=== PATIENT | male | born 1940 | race Caucasian/White ===

== ENCOUNTER 2023-12-12 15:50 | Emergency (ER) | payer MEDICARE, OTHER, SELFPAY ==
[2023-12-12 16:30] LABS: % Basophils 0.3 % (0-2); % Eosinophils 1.9 % (0-6); % Immature Granulocytes 0.7 % (0-0.5); % Lymphocytes 6.3 % (20.5-51.1); % Monocytes 2.5 % (1.7-9.3); % Neutrophils 88.3 % (42.2-75.2); Absolute Eosinophils 0.2 10^3/uL (0-0.7); Absolute Immature Granulocytes 0.1 10^3/uL (0-0.05); Absolute Lymphocytes 0.6 10^3/uL (1.2-3.4); Absolute Monocytes 0.2 10^3/uL (0.1-0.6); Absolute Neutrophils 7.8 10^3/uL (1.4-6.5); Hematocrit 34.4 % (39.0-52.0); Hemoglobin 11.6 g/dL (13.0-18.0); Mean Corp Hgb Conc. 33.7 g/dL (33.0-37.0); Mean Corpuscular Hgb 32.4 pg (27.0-31.0); Mean Corpuscular Volume 96.1 fL (80.0-94.0); Mean Platelet Volume 10.1 fL (7.4-10.4); Nucleated Red Blood Cells % 0 % (-); Platelet Count 162 10^3/uL (130-400); Red Blood Cell Count 3.58 10^6/uL (4.70-6.10); Red Cell Dist. Width 17.2 % (11.5-14.5); White Blood Cell Count 8.8 10^3/uL (4.8-10.8)
--- NOTE | 2023-12-12 16:32 | ED.GENMED ---
History of Present Illness
<Jen Johnson PA-C - Last Filed: 12/13/23 14:57>
General
Chief Complaint: Fever
Source: patient
Time Seen by Provider: 12/12/23 16:29
Nursing documentation reviewed up to this point in time: agreed with
Travel History
Have you had any contact with someone who has COVID-19?: No
Do you have any symptoms of coronavirus? Fever > 100 degrees, chills, cough, shortness of breath, sore throat, loss of taste or smell, muscle aches, or headache?: No
History of Present Illness
History of Present Illness:
This is a 83-year-old male with past medical history of diabetes, hypertension, hyperlipidemia who is presenting today with dizziness and vomiting. He states that he woke up today and felt very fatigued and subsequently went back to sleep. He
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 He also has associated diarrhea. He denies abdominal pain. He states that he was
feeling well this week until today. States that the dizziness gets worse when he walks around or moves his head. He denies chest pain or shortness of breath. Denies back pain, dysuria, hematuria. He has never had anything like this before.
Past History
<Jen Johnson PA-C - Last Filed: 12/13/23 14:57>
Past History
ED Past Medical History: Cancer (Basal cell, Prostate ), HTN, Hypercholesterolemia, NIDDM, Psychiatric (Depression) and Other (Arthritis, diabetic Neuropathy, TIA, Right leg Post polio syndrome)
ED Past Surgical History: Appendectomy, Bowel resection, Orthopedic (Hand surgery with finger amputation, Right knee replacement), Tonsilectomy, Urological (TURP) and Other (cataracts, hernia repair)
Social History
Tobacco: Former smoker
Alcohol: None
Drug: None
Personal:
Living: with family
Phy Exam
<Jen Johnson PA-C - Last Filed: 12/13/23 14:57>
Physical Exam
Physical Exam:
General: Patient appears ill however is in no acute distress
Skin: Warm and dry, no rashes or lesions
Cardiac: Tachycardic otherwise regular rhythm, no murmurs
Pulm: normal respiratory effort, no wheezes, rales, or rhonchi
Abdomen: Abdomen is distended, however no abdominal tenderness
Neuro: Patient alert and oriented x 3. Cranial nerves II through XII intact. [id number], [id number] testing intact. No nystagmus noted.
Course
<Jen Johnson PA-C - Last Filed: 12/13/23 14:57>
Orders/Labs/Results
Orders:
Orders
12/12/23 15:56
Electrocardiogram (*1) Urgent
Reason for Study: Other
Other Reason for Exam: Possible Sepsis
12/12/23 15:57
EKG- Treatment ONCE
12/12/23 16:16
Complete Blood Count/With Diff Urgent
Comprehensive Metabolic Panel Urgent
Blood Culture Urgent
LUTHER Source: Blood/Venous
Specimen Description:
12/12/23 16:17
Lactic Acid Urgent
12/12/23 16:59
0.9% Sodium Chloride 500 ml [Nss] 500 ml IV BOLUS
Acetaminophen [Tylenol] 650 mg PO NOW STA
Ondansetron Injectable [Zofran] 4 mg IV NOW STA
12/12/23 17:01
Cardiac Monitoring- Treatment ONCE
Vital Signs- Treatment ONCE
Frequency: Once
12/12/23 17:24
COVID-19 Antigen Urgent
Source: Nasal Swab
Lactate Level [Lactic Acid] Urgent
Lipase Urgent
Influenza A+B Rapid Molecular Urgent
LUTHER Source: Nasal Swab
Specimen Description:
12/12/23 17:29
Blood Culture Urgent
LUTHER Source: Blood/Venous
Specimen Description:
12/12/23 17:57
CR Chest - 2 Views Urgent
Comment:
Reason For Exam: cough, fever
12/12/23 20:58
Urinalysis Reflex To Culture Urgent
Date Specimen was Collected: 12/12/23
Time Specimen was Collected: 20:55
Abnormal Lab Results
12/12/23 12/12/23 12/12/23
16:16 16:17 17:24
RBC 3.58 L 10^6/uL
(4.70-6.10)
Hgb 11.6 L g/dL
(13.0-18.0)
Hct 34.4 L %
(39.0-52.0)
MCV 96.1 H fL
(80.0-94.0)
MCH 32.4 H pg
(27.0-31.0)
RDW 17.2 H %
(11.5-14.5)
Abs Immat Gran (auto) 0.1 H 10^3/uL
(0-0.05)
Absolute Neuts (auto) 7.8 H 10^3/uL
(1.4-6.5)
Absolute Lymphs (auto) 0.6 L 10^3/uL
(1.2-3.4)
Immature Gran % 0.7 H %
(0-0.5)
Neutrophils % 88.3 H %
(42.2-75.2)
Lymphocytes % 6.3 L %
(20.5-51.1)
Lactic Acid 2.3 H mmol/L 2.4 H mmol/L
(0.7-2.0) (0.7-2.0)
Total Protein 5.5 L g/dl
(6.3-8.2)
Lipase 601 H U/L
(23-300)
12/12/23 16:16
12/12/23 16:16
Vital Signs
Initial and Last Documented VS:
Initial Vital Signs
Temp Pulse Resp Pulse Ox
103.1 F H 105 20 98
12/12/23 15:55 12/12/23 15:55 12/12/23 15:55 12/12/23 15:55
Last Documented Vital Signs
Temp Pulse Resp BP Pulse Ox
97.8 F 74 20 108/63 94
12/12/23 20:57 12/12/23 20:57 12/12/23 20:57 12/12/23 22:06 12/12/23 20:57
<Alex Arnett, - Last Filed: 12/12/23 22:07>
Orders/Labs/Results
Orders:
Orders
12/12/23 15:56
Electrocardiogram (*1) Urgent
Reason for Study: Other
Other Reason for Exam: Possible Sepsis
12/12/23 15:57
EKG- Treatment ONCE
12/12/23 16:16
Complete Blood Count/With Diff Urgent
Comprehensive Metabolic Panel Urgent
Blood Culture Urgent
LUTHER Source: Blood/Venous
Specimen Description:
12/12/23 16:17
Lactic Acid Urgent
12/12/23 16:59
0.9% Sodium Chloride 500 ml [Nss] 500 ml IV BOLUS
Acetaminophen [Tylenol] 650 mg PO NOW STA
Ondansetron Injectable [Zofran] 4 mg IV NOW STA
12/12/23 17:01
Cardiac Monitoring- Treatment ONCE
Vital Signs- Treatment ONCE
Frequency: Once
12/12/23 17:24
COVID-19 Antigen Urgent
Source: Nasal Swab
Lactate Level [Lactic Acid] Urgent
Lipase Urgent
Influenza A+B Rapid Molecular Urgent
LUTHER Source: Nasal Swab
Specimen Description:
12/12/23 17:29
Blood Culture Urgent
LUTHER Source: Blood/Venous
Specimen Description:
12/12/23 17:57
CR Chest - 2 Views Urgent
Comment:
Reason For Exam: cough, fever
12/12/23 20:58
Urinalysis Reflex To Culture Urgent
Date Specimen was Collected: 12/12/23
Time Specimen was Collected: 20:55
Abnormal Lab Results
12/12/23 12/12/23 12/12/23
16:16 16:17 17:24
RBC 3.58 L 10^6/uL
(4.70-6.10)
Hgb 11.6 L g/dL
(13.0-18.0)
Hct 34.4 L %
(39.0-52.0)
MCV 96.1 H fL
(80.0-94.0)
MCH 32.4 H pg
(27.0-31.0)
RDW 17.2 H %
(11.5-14.5)
Abs Immat Gran (auto) 0.1 H 10^3/uL
(0-0.05)
Absolute Neuts (auto) 7.8 H 10^3/uL
(1.4-6.5)
Absolute Lymphs (auto) 0.6 L 10^3/uL
(1.2-3.4)
Immature Gran % 0.7 H %
(0-0.5)
Neutrophils % 88.3 H %
(42.2-75.2)
Lymphocytes % 6.3 L %
(20.5-51.1)
Lactic Acid 2.3 H mmol/L 2.4 H mmol/L
(0.7-2.0) (0.7-2.0)
Total Protein 5.5 L g/dl
(6.3-8.2)
Lipase 601 H U/L
(23-300)
12/12/23 16:16
12/12/23 16:16
Vital Signs
Initial and Last Documented VS:
Initial Vital Signs
Temp Pulse Resp Pulse Ox
103.1 F H 105 20 98
12/12/23 15:55 12/12/23 15:55 12/12/23 15:55 12/12/23 15:55
Last Documented Vital Signs
Temp Pulse Resp BP Pulse Ox
97.8 F 74 20 108/63 94
12/12/23 20:57 12/12/23 20:57 12/12/23 20:57 12/12/23 22:06 12/12/23 20:57
<Jen Johnson PA-C - Last Filed: 12/13/23 14:57>
MDM/Problems Addressed
Differential Diagnosis Includes:
Differentials include gastroenteritis, colitis, diverticulitis, BPPV, electrolyte derangement, acute dehydration,
MDM/Problems Addressed:
vomiting
dizziness
Chronic conditions affecting care: DM, HTN, Cancer (Questionable colon cancer, patient states that he had a colon resection because he thought he might have cancer in that area) and Other (Hyperlipidemia)
Acute Exacerbation and/or Progression of Chronic Illness:
n/a
<Jen Johnson PA-C - Last Filed: 12/13/23 14:57>
*Pulse Oximetry
Patient hypoxic: no
Data Reviewed
Review of Other/Old Records Reveals: Records (Reviewed previous records, patient recently seen here in October for hypoxia, was hospitalized for pneumonia)
Further Testing Considered But Not Given:
Considered abdominal CT given diarrhea, vomiting, and elevated lipase however patient has no abdominal tenderness and has been improving while here in the ED
<Alex Arnett DO - Last Filed: 12/12/23 22:07>
*Radiology
Radiology exam reviewed: radiology read reviewed and all reviewed NAD by ED Provider
*Pulse Oximetry
Patient hypoxic: no
*EKG
Interpreted by ED Provider?: Yes
Interpretation: abnormal
Rate: normal
[place]: left axis deviation
QRS Pattern: right bundle branch block
Ischemia: non-specific ST changes
*Gear Straightener Interpretation
Rate: normal
Interpretation: normal
Rhythm: sinus
*Critical Care Note
Total Time (30-74mins, 75-104mins- exclusive of procedures): Not Applicable
Data Reviewed
Review of Other/Old Records Reveals: Discharge Summary (Discharge summary from October 2023 reviewed.)
Source: patient
<Jen Johnson PA-C - Last Filed: 12/13/23 14:57>
Patient Management
Escalation/DeEscalation of care consider admission/obs:
This is a 83-year-old male with past medical history of hypertension, hyperlipidemia, diabetes who presents to emergency department today following 1 episode of vomiting and dizziness. He is febrile and tachycardic upon arrival. His physical exam
is unremarkable. We gave him fluids, Zofran, and Tylenol. On reassessment, patient feels a lot better, and has not had any further episodes of dizziness or vomiting. Patient was recently hospitalized in October for pneumonia, he does admit to
some dry coughing. We did a repeat chest x-ray here which did not show any evidence of active cardiopulmonary disease.
<Jen Johnson PA-C - Last Filed: 12/13/23 14:57>
Update Note
Update Note:
Will start patient on Zofran, IV fluids, Tylenol and will reassess, no abdominal imaging indicated at this time.
6:33 PM--upon reevaluation, patient states that his dizziness has been reduced by about 50% and he does not feel nauseous
8:21 PM�patient reports that he feels back to his baseline and is no longer dizzy or nauseous. Patient denies abdominal pain. Patient requesting to go home. Blood cultures and urinalysis pending.
<Alex Arnett DO - Last Filed: 12/12/23 22:07>
Update Note
Update Note:
Will start patient on Zofran, IV fluids, Tylenol and will reassess, no abdominal imaging indicated at this time.
6:33 PM--upon reevaluation, patient states that his dizziness has been reduced by about 50% and he does not feel nauseous
8:21 PM�patient reports that he feels back to his baseline and is no longer dizzy or nauseous. Patient denies abdominal pain. Patient requesting to go home. Blood cultures and urinalysis pending.
2200 patient reassessed. Feels very well and all symptoms have resolved. His abdomen was reexamined and is soft and nontender. He offers no current complaints. CBC noted. He is a diabetic but no signs of urine, pneumonia or intra-abdominal
infection. Question viral source. I do not suspect CVA as I suspect his dizziness came about as his fever came on. I do think it is reasonable that he is managed as an outpatient as he request outpatient management. I did ask him to return
immediately for any progression of symptoms
ED Attending Note
<Jen Johnson PA-C - Last Filed: 12/13/23 14:57>
-
Portions of this chart may have been created with voice recognition software.� Occasional wrong word or��sound alike� substitutions may have occurred due to the inherent limitations of voice recognition software.
<Alex Arnett DO - Last Filed: 12/12/23 22:07>
ED Attending Note
Patient seen and examined by attending physician: Yes
I performed the substantive portion of visit, reviewed & personally made and approve the management plan that is documented in note by myself or FANG.: Yes
ED Attending Note:
83-year-old male who presents after he started feeling dizzy earlier. Patient states he then had an episode of vomiting. States symptoms seem worse when he sat up. 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 When he got home his daughter
felt he did not look well. Patient arrived with fever 103. Patient denies knowing that he was febrile. Patient my evaluation does feel little bit better. Denies abdominal pain. Has had a cough but has had a cough since October. Has had
congestion as well for some time. Is scheduled to follow-up with ENT. Exam: Awake and alert, soft. Obese. Assessment and plan: Await labs, influenza, COVID, chest x-ray. Reassess after results
Discharge Plan
Departure
Patient Disposition: Home (Routine Discharge)
Date of Disposition: 12/12/23
Time of Disposition: 22:05
Patient with high blood pressure during this ER visit?: Yes
Discharge Problem:
Fever, Vomiting
Instructions: Fever, Adult (DC), Dizziness, Acute Nausea and Vomiting
Prescriptions:
No Action
glipizide 5 MG tablet
5 mg PO BID@0800,1700
atorvastatin 10 MG tablet
10 mg PO DAILY
acetaminophen 325 MG tablet
650 mg PO Q4HPRN PRN (Reason: for mild pain or fever >100.4F) Qty: 0 0RF
ascorbic acid (vitamin C) [Vitamin C] 500 MG tablet
1,000 mg PO DAILY
metformin 500 MG tablet extended release 24 hr
1,000 mg PO BID@0800,1700
sertraline 50 MG tablet
50 mg PO HS
cholecalciferol (vitamin D3) 2,000 UNITS tablet
2,000 unit PO DAILY
B-complex with vitamin C 1 CAPLET tablet
1 caplet PO HS 0RF
aspirin 81 mg Tablet,Delayed Release (Dr/Ec)
81 mg PO HS
methotrexate sodium 2.5 mg Tablet
20 mg PO TU
Rx Instructions:
take 10mg in AM, and 10mg in evening---tuesdays only
gabapentin 300 mg Capsule
600 mg PO BID
melatonin 5 mg Tablet
5 mg PO HS
cholestyramine (with sugar) 4 gram powder
1 ea PO DAILY
folic acid 1 mg tablet
1 mg PO DAILY
desonide 0.05 % ointment
1 applic TOPICAL DAILY PRN (Reason: leg rash)
cefuroxime axetil 500 mg Tablet
500 mg PO BID Qty: 7 0RF
Rx Instructions:
last day of antibiotics 11/16/23
albuterol sulfate [Ventolin HFA] 90 mcg/actuation HFA aerosol inhaler
2 puff inhalation Q6H PRN (Reason: shortness of breath or wheezing) Qty: 8.5 0RF
azithromycin 250 mg Tablet
500 mg PO DAILY 3 Days Qty: 6 0RF
Rx Instructions:
last day of antibiotics 11/16/23
Referrals:
Alex Leon MD [Family Provider] -
Activity Restrictions/Additional Instructions:
Return immediately for abdominal pain, intractable vomiting, fevers difficulty urinating or any other concerns. Please see your doctor in the next 2 to 3 days for follow-up and reevaluation.
Interventions
Interventions:
*Risk Screen - Suicide Last Done: 12/12/23 21:01
*General Assessment Last Done: 12/12/23 21:00
*Neglect/Abuse Screening Last Done: 12/12/23 21:01
ED- Fall Risk Assessment Last Done: 12/12/23 22:07
*ED COVID-19 Vaccine History Last Done: 12/12/23 21:00
*Nursing Disposition Last Done: 12/12/23 22:07
ED- Cardiac Assessment Last Done: 12/12/23 19:10
ED- Neurological Assessment Last Done: 12/12/23 19:10
Discharge Date and Time
Discharge Date/Time: 12/12/23 22:17
[2023-12-12 16:46] LABS: Lactic Acid 2.3 mmol/L (0.7-2.0)
[2023-12-12 16:52] LABS: ALT (SGPT) 44 U/L (0-50); AST (SGOT) 45 U/L (17-59); Albumin 3.7 g/dl (3.5-5.0); Alkaline Phosphatase 91 U/L (38-126); Blood Urea Nitrogen 19 mg/dl (9-20); Calcium 9.5 mg/dl (8.4-10.2); Carbon Dioxide 22 mmol/L (22-30); Chloride 102 mmol/L (98-107); Glucose 87 mg/dl (70-99); Potassium 4.5 mmol/L (3.5-5.1); Sodium 135 mmol/L (135-145); Total Protein 5.5 g/dl (6.3-8.2); eGFR > 60.00
[2023-12-12] MEDS: NSS 500 IV (17:47)
[2023-12-12] MEDS: TYLENOL 650 MG PO (17:48)
[2023-12-12] MEDS: ZOFRAN 4 MG IV (17:48)
[2023-12-12 17:49] VITALS: BP 109/64
[2023-12-12 18:16] LABS: Lipase 601 U/L (23-300)
[2023-12-12 18:17] LABS: Lactic Acid 2.4 mmol/L (0.7-2.0)
[2023-12-12 19:08] LABS: COVID-19 Antigen Negative (Negative)
[2023-12-12 19:09] VITALS: BP 107/52
[2023-12-12 20:57] VITALS: BP 92/50
[2023-12-12 21:10] LABS: Urine Albumin Negative (Neg - Trace); Urine Bilirubin Negative (Negative); Urine Character Clear (Clear); Urine Color Yellow; Urine Glucose Negative (Negative); Urine Ketone Negative (Negative); Urine Leukocyte Negative (Negative); Urine Nitrite Negative (Negative); Urine Occult Blood Negative (Negative); Urine Urobilinogen Negative (Neg - 1+)
[2023-12-12 22:06] VITALS: BP 108/63
== END 2023-12-12 22:17 | disposition home or self-care (01) ==
LOC: EMR 15:50
PROVIDERS: Emergency Medicine; Physician Assistant; EMERGENCY PHYSICIAN Emergency Medicine; FAMILY PHYSICIAN Internal Medicine
DX: R50.9 Fever, unspecified (principal); R11.10 Vomiting, unspecified; I10 Essential (primary) hypertension; Z11.52 Encounter for screening for COVID-19; E11.9 Type 2 diabetes mellitus without complications; E78.00 Pure hypercholesterolemia, unspecified
CPT/HCPCS: 99285; 96374; 96361; 71046; 80053; 81003; 83605; 83690; 85025; 87040; 87502; 87811; 93005

== ENCOUNTER 2024-04-01 15:23 | Emergency (ER) | payer MEDICARE, OTHER, SELFPAY ==
[2024-04-01 15:27] VITALS: BP 97/62
--- NOTE | 2024-04-01 17:18 | ED.MUSCINJ ---
HPI-Injury
General
Chief Complaint: Musculo-Skeletal Complaint
Source: patient
Exam Limitations: none
Time Seen by Provider: 04/01/24 16:31
Travel History
Have you had any contact with someone who has COVID-19?: No
Do you have any symptoms of coronavirus? Fever > 100 degrees, chills, cough, shortness of breath, sore throat, loss of taste or smell, muscle aches, or headache?: No
History of Present Illness-Injury
Initial Injury comments:
84-year-old male presents complaining of left shoulder pain. He is left-hand dominant. He tripped and fell onto his left shoulder. He notes bruising and swelling here. He did not hit his head. The pain is made worse when he moves his arm. No
other cold
Past History
Past History
ED Past Medical History: Cancer (Basal cell, Prostate ), HTN, Hypercholesterolemia, NIDDM, Psychiatric (Depression) and Other (Arthritis, diabetic Neuropathy, TIA, Right leg Post polio syndrome)
ED Past Surgical History: Appendectomy, Bowel resection, Orthopedic (Hand surgery with finger amputation, Right knee replacement), Tonsilectomy, Urological (TURP) and Other (cataracts, hernia repair)
Social History
Tobacco: Former smoker
Alcohol: None
Drug: None
Personal:
Living: with family
Phy Exam
Physical Exam
Physical Exam:
General: Well-appearing male no acute respiratory distress
HEENT: Normocephalic atraumatic
Musculoskeletal exam: Left shoulder ecchymotic swollen with abrasion. He is tender over the superior lateral shoulder. No significant deformity. Range of motion is decreased spine is nontender
Vascular: 2+ radial pulse left wrist
Neurologic: Alert and oriented good sensation to the left
Injury Course
Orders/Labs/Results
Orders:
Orders
04/01/24 15:29
CR Shoulder - Left Min 2 View* Urgent
Comment:
Reason For Exam: fall injury
04/01/24 16:54
Sling Left-Treatment ONCE
MDM/Problems Addressed
Differential Diagnosis Includes:
Left shoulder pain after mechanical fall. Consider fracture versus dislocation versus contusion.
I personally visualized x-rays which demonstrate a slightly displaced acromion fracture of the left shoulder. Patiently placed in a sling and will be advised follow-up with orthopedics for further evaluation
*Critical Care Note
Total Time (30-74mins, 75-104mins- exclusive of procedures): Not Applicable
ED Attending Note
-
Portions of this chart may have been created with voice recognition software.� Occasional wrong word or��sound alike� substitutions may have occurred due to the inherent limitations of voice recognition software.
Discharge Plan
Departure
Patient Disposition: Home (Routine Discharge)
Date of Disposition: 04/01/24
Time of Disposition: 17:20
Patient with high blood pressure during this ER visit?: No
Discharge Problem:
Acromial fracture
Instructions: Muscle and Bone Pain (DC)
Prescriptions:
No Action
glipizide 5 MG tablet
5 mg PO BID@0800,1700
atorvastatin 10 MG tablet
10 mg PO DAILY
acetaminophen 325 MG tablet
650 mg PO Q4HPRN PRN (Reason: for mild pain or fever >100.4F) Qty: 0 0RF
ascorbic acid (vitamin C) [Vitamin C] 500 MG tablet
1,000 mg PO DAILY
metformin 500 MG tablet extended release 24 hr
1,000 mg PO BID@0800,1700
sertraline 50 MG tablet
50 mg PO HS
cholecalciferol (vitamin D3) 2,000 UNITS tablet
2,000 unit PO DAILY
B-complex with vitamin C 1 CAPLET tablet
1 caplet PO HS 0RF
aspirin 81 mg Tablet,Delayed Release (Dr/Ec)
81 mg PO HS
methotrexate sodium 2.5 mg Tablet
20 mg PO TU
Rx Instructions:
take 10mg in AM, and 10mg in evening---tuesdays only
gabapentin 300 mg Capsule
600 mg PO BID
melatonin 5 mg Tablet
5 mg PO HS
cholestyramine (with sugar) 4 gram powder
1 ea PO DAILY
folic acid 1 mg tablet
1 mg PO DAILY
desonide 0.05 % ointment
1 applic TOPICAL DAILY PRN (Reason: leg rash)
cefuroxime axetil 500 mg Tablet
500 mg PO BID Qty: 7 0RF
Rx Instructions:
last day of antibiotics 11/16/23
albuterol sulfate [Ventolin HFA] 90 mcg/actuation HFA aerosol inhaler
2 puff inhalation Q6H PRN (Reason: shortness of breath or wheezing) Qty: 8.5 0RF
azithromycin 250 mg Tablet
500 mg PO DAILY 3 Days Qty: 6 0RF
Rx Instructions:
last day of antibiotics 11/16/23
Referrals:
Denise Gonsales DO [Active] -
Na Velazquez CRNP [Family Provider] -
Activity Restrictions/Additional Instructions:
Use sling for comfort. Use Tylenol for pain. Follow-up with orthopedics to further evaluate
Interventions
Interventions:
*Risk Screen - Suicide Last Done: 04/01/24 15:27
*General Assessment Last Done: 04/01/24 15:27
*Neglect/Abuse Screening Last Done: 04/01/24 15:27
ED-Musculoskeletal Assessment Last Done: 04/01/24 16:31
Discharge Date and Time
Print Language: MOLDOVAN
== END 2024-04-01 17:36 | disposition home or self-care (01) ==
LOC: EMR 15:23
PROVIDERS: EMERGENCY PHYSICIAN Emergency Medicine; FAMILY PHYSICIAN Nurse Practitioner
DX: S42.122A Displaced fracture of acromial process, left shoulder, initial encounter for closed fracture (principal); W01.0XXA Fall on same level from slipping, tripping and stumbling without subsequent striking against object, initial encounter; I10 Essential (primary) hypertension; E11.40 Type 2 diabetes mellitus with diabetic neuropathy, unspecified; E11.36 Type 2 diabetes mellitus with diabetic cataract; E78.00 Pure hypercholesterolemia, unspecified; F32.A Depression, unspecified; M19.90 Unspecified osteoarthritis, unspecified site; G14 Postpolio syndrome; Z96.651 Presence of right artificial knee joint; Z87.891 Personal history of nicotine dependence; Z86.73 Personal history of transient ischemic attack (TIA), and cerebral infarction without residual deficits; Z85.46 Personal history of malignant neoplasm of prostate; Z85.828 Personal history of other malignant neoplasm of skin; Z79.82 Long term (current) use of aspirin; Z79.84 Long term (current) use of oral hypoglycemic drugs; Z88.6 Allergy status to analgesic agent; Z88.5 Allergy status to narcotic agent; Z88.0 Allergy status to penicillin; Z88.8 Allergy status to other drugs, medicaments and biological substances
CPT/HCPCS: 99283; 73030

== ENCOUNTER → 2024-04-26 08:31 | Outpatient (REF) | payer MEDICARE, OTHER, SELFPAY | LOC: MRI 3T 08:31 | PROVIDERS: ATTENDING PHYSICIAN Orthopaedic Surgery; FAMILY PHYSICIAN Internal Medicine | DX: S42.122A Displaced fracture of acromial process, left shoulder, initial encounter for closed fracture (principal) | CPT/HCPCS: 73221 ==

== ENCOUNTER 2024-05-27 21:09 | Inpatient (IN) | payer MEDICARE, OTHER, SELFPAY ==
[2024-05-27] VITALS (15 sets, daily range): BP systolic 78–102; BP diastolic 44–75; BMI 35.3; BMI 34.3
[2024-05-27 15:37] LABS: % Basophils 0.2 % (0-2); % Immature Granulocytes 0.5 % (0-0.5); % Lymphocytes 7.1 % (20.5-51.1); % Monocytes 2.7 % (1.7-9.3); % Neutrophils 89.5 % (42.2-75.2); Absolute Immature Granulocytes 0.1 10^3/uL (0-0.05); Absolute Lymphocytes 0.9 10^3/uL (1.2-3.4); Absolute Monocytes 0.4 10^3/uL (0.1-0.6); Absolute Neutrophils 11.7 10^3/uL (1.4-6.5); Hematocrit 41.3 % (39.0-52.0); Hemoglobin 13.5 g/dL (13.0-18.0); Mean Corp Hgb Conc. 32.7 g/dL (33.0-37.0); Mean Corpuscular Hgb 32.1 pg (27.0-31.0); Mean Corpuscular Volume 98.1 fL (80.0-94.0); Mean Platelet Volume 10.6 fL (7.4-10.4); Nucleated Red Blood Cells % 0 % (-); Platelet Count 140 10^3/uL (130-400); Red Blood Cell Count 4.21 10^6/uL (4.70-6.10); Red Cell Dist. Width 16.1 % (11.5-14.5); White Blood Cell Count 13.1 10^3/uL (4.8-10.8)
--- NOTE | 2024-05-27 15:53 | ED.GENMED ---
History of Present Illness
<RANJEET George - Last Filed: 05/27/24 22:47>
General
Chief Complaint: Abdominal Symptoms
Source: patient
Exam Limitations: none
Time Seen by Provider: 05/27/24 15:12
Nursing documentation reviewed up to this point in time: agreed with
History of Present Illness
History of Present Illness:
Patient is a 84year-old male with past medical's of hypertension hyperlipidemia diabetes neuropathy presents to the ER for evaluation. Patient reports he had watery diarrhea all night last night and is started projectile vomiting around 4 AM. He
vomited multiple times. He did have the chills. He has not been on recent antibiotics but he denies any associate abdominal pain urinary frequency or urgency. In addition he also complains of being short of breath for the past week worse with
exertion. He reports he has no history of heart failure or lung issues. Does use albuterol for cough which he has had.
Past History
<RANJEET George - Last Filed: 05/27/24 22:47>
Past History
ED Past Medical History: Cancer (Basal cell, Prostate ), HTN, Hypercholesterolemia, NIDDM, Psychiatric (Depression) and Other (Arthritis, diabetic Neuropathy, TIA, Right leg Post polio syndrome)
ED Past Surgical History: Appendectomy, Bowel resection, Orthopedic (Hand surgery with finger amputation, Right knee replacement), Tonsilectomy, Urological (TURP) and Other (cataracts, hernia repair)
Social History
Tobacco: Former smoker
Alcohol: None
Drug: None
Personal:
Living: with family
Review of Systems
<RANJEET George - Last Filed: 05/27/24 22:47>
Review of Systems
Allergies reviewed?: Yes
All Other Systems: ROS reviewed and negative except as documented in HPI and ROS
Constitutional: Reports chills
Respiratory: Reports trouble breathing (+ DESIR)
Phy Exam
<RANJEET George - Last Filed: 05/27/24 22:47>
General Physical Exam
General Presentation: no apparent distress
General age: appears stated age
General Skin: warm and dry
General Habitus: normal
General Mental: alert
General Hydration: dry mucous membranes
Cardiovascular Exam
Cardiovascular Exam: regular rate/rhythm, no murmur and normal peripheral pulses
Pulmonary Exam
Pulmonary Exam: lungs clear and no respiratory distress
Gastrointestinal Exam
Gastrointestinal Exam: non tender and soft
Neurological Exam
Neurological Exam: alert and oriented x3
Musculoskeletal Exam
Musculoskeletal Exam: full ROM
Skin Exam
Skin Exam: normal color and warm/dry
Psychiatric Exam
Psychiatric Exam: normal mood/affect
Course
<RANJEET George - Last Filed: 05/27/24 22:47>
Orders/Labs/Results
Orders:
Orders
05/27/24 Dinner
NPO
Allow oral meds: Yes
Allow clear liquids: Sips of Clears
05/27/24 15:29
Complete Blood Count/With Diff Urgent
Comprehensive Metabolic Panel Urgent
Lipase Urgent
05/27/24 15:51
0.9% Sodium Chloride 500 ml [Nss] 500 ml IV BOLUS
Ondansetron Injectable [Zofran] 4 mg IV NOW STA
05/27/24 15:52
Acetaminophen [Tylenol] 650 mg PO NOW STA
05/27/24 16:01
NT-proBNP Urgent
Troponin I Urgent
05/27/24 16:19
Lactic Acid Urgent
05/27/24 16:39
Chest [CR Chest - 2 Views ] Urgent
Comment:
Reason For Exam: sob/fever
05/27/24 18:00
CT Abd/Pel (IV only)-DH only Urgent
Comment:
Reason For Exam: abd pain n/v/d fever
0.9% Sodium Chloride 1000 ml [Nss] 1,000 ml IV BOLUS
05/27/24 19:07
Bladder Scan- Treatment ONCE
05/27/24 19:08
Electrocardiogram (*1) Stat
Reason for Study: Other
Other Reason for Exam: chest pain
EKG- Treatment ONCE
05/27/24 19:15
NORepinephrine 4 MG/250 ML [Levophed] 4 mg in 250 ml IV PER PROTOCOL
Initial dose in mcg/min, then titrate:: 4
Titrate to keep:: MAP > 65 mmHg
Titrate by mcg/min:: 1-2 mcg/min
Frequency of titrations (minutes):: 5
Maximum dose in ICU in mcg/min:: 30
Maximum dose in IMU in mcg/min:: 8
Maximum dose in IVU in mcg/min:: 4
Begin to taper infusion when:: Remained at goal for 4hrs
Taper by mcg/min:: 1-2 mcg/min
Frequency of taper (minutes) if patient maintains goal:: 30
Taper to off?: Yes
If infusion off & no longer maintaining goal:: Contact Provider
05/27/24 19:25
Add On- LAB Urgent
Tests Added?: VBG
05/27/24 19:26
Cefepime HCl [Maxipime] 1,000 mg IV NOW STA
Vancomycin 1 Gram/200 ml [Vancocin] 1 gram in 200 ml IV NOW
05/27/24 19:38
UA Reflex to Culture [Urinalysis Reflex To Culture] Urgent
Date Specimen was Collected: 05/27/24
Time Specimen was Collected: 17:45
05/27/24 19:41
Sterile Water [Sterile Water For Injection] 10 ml .ROUTE .[facility]
05/27/24 20:26
COVID-19 Antigen Urgent
Source: Nasal Swab
05/27/24 20:39
Admit/Transfer Patient As Directed
Co-Sign Provider:
Level of Care: Inpatient admission
Assign to:: IMU- Intermediate Care
Physician / Group: jessica
Diagnosis: viral gastroenteritis
Reason for Hospitalization: viral gastroenteritis
Expected length of stay greater than two midnights?: Yes
ELOS- Estimated Length of Stay in days: 2
I certify the patient meets the requirements for IP care: Yes
Code Status As Directed
Resuscitation Status: Full Code
05/27/24 20:44
C difficile Antigen & Toxins Urgent
LUTHER Source: Feces/Stool
Specimen Description:
Stool Culture Urgent
LUTHER Source: Feces/Stool
Specimen Description:
05/27/24 20:45
Norovirus by PCR Urgent
LUTHER Source: Feces/Stool
Specimen Description:
05/27/24 21:35
0.9% Sodium Chloride 1000 ml [Nss] 1,000 ml IV 100 mls/hr
Acetaminophen [Tylenol] 650 mg PO Q4HPRN PRN
Albuterol [ProAIR HFA INHALER] 2 puff INH R Q6HPRN PRN
Dextrose 50%-Water [Dextrose 50% Syringe] 12.5 grams IV [id number] PRN
Glucagon [GlucaGen] 1 mg IM PRN PRN
05/27/24 21:35
Activity As Directed
Activity Level: As Tolerated
Bedside Glucose Monitoring As Directed
Frequency: AC&HS
Additional Instructions:: Change to q6h if pt on TPN, tube feeding or not eating
Bladder Scan As Directed
Follow Bladder Retention/Intermittent Cath Algorithm?: Yes
PRN if no void in __ hours: 6
Frequency: Per Retention Algorithm
If Bladder Scan Result >: 400
then:: Straight cath
Straight Cath As Directed
Frequency: Per Retention Algorithm
Additional Instructions: straight cath as needed per acute urinary retention algorithm for 24 hrs
Additional Instructions: for bladder scan greater than 400 mL
Vital Signs As Directed
Frequency: Per unit guidelines
DX Deep Vein Thrombosis Video Routine
05/27/24 22:00
Aspirin Low Dose EC [Aspir Low (Enteric Coated)] 81 mg PO HS
Melatonin 5 mg PO HS
Sertraline HCl [Zoloft] 50 mg PO HS
Vitamin B Complex with C [B COMPLEX w/VITAMIN C] 1 caplet PO HS
05/28/24 06:00
Complete Blood Count/With Diff IN AM
Comprehensive Metabolic Panel IN AM
Glycohemoglobin (HgbA1c) IN AM
05/28/24 07:30
Insulin Aspart Corrective Low [Novolog Flexpen-Low Resistance] See Protocol SC AC
05/28/24 08:00
Ascorbic Acid [Vitamin C] 1,000 mg PO DAILY
Atorvastatin [Lipitor] 10 mg PO DAILY
Cholecalciferol (Vitamin D3) [VITAMIN D3 (cholecalciferol)] 50 mcg PO DAILY
FOLic ACID [Folvite] 1 mg PO DAILY
Gabapentin [Neurontin] 600 mg PO BID
Heparin 5,000 units SC Q12
Abnormal Lab Results
05/27/24 05/27/24 05/27/24
15:29 16:19 19:38
WBC 13.1 H 10^3/uL
(4.8-10.8)
RBC 4.21 L 10^6/uL
(4.70-6.10)
MCV 98.1 H fL
(80.0-94.0)
MCH 32.1 H pg
(27.0-31.0)
MCHC 32.7 L g/dL
(33.0-37.0)
RDW 16.1 H %
(11.5-14.5)
MPV 10.6 H fL
(7.4-10.4)
Abs Immat Gran (auto) 0.1 H 10^3/uL
(0-0.05)
Absolute Neuts (auto) 11.7 H 10^3/uL
(1.4-6.5)
Absolute Lymphs (auto) 0.9 L 10^3/uL
(1.2-3.4)
Neutrophils % 89.5 H %
(42.2-75.2)
Lymphocytes % 7.1 L %
(20.5-51.1)
Carbon Dioxide 21 L mmol/L
(22-30)
BUN 29 H mg/dl
(9-20)
Glucose 203 H mg/dl
(70-99)
Lactic Acid 2.2 H mmol/L
(0.7-2.0)
Total Bilirubin 1.4 H mg/dl
(0.2-1.3)
Total Protein 5.8 L g/dl
(6.3-8.2)
Urine Ketones 1+ A
(Negative)
Urine Bilirubin 1+ A
(Negative)
05/27/24 15:29
05/27/24 15:29
Vital Signs
Initial and Last Documented VS:
Initial Vital Signs
Temp Pulse Resp BP Pulse Ox
100.9 F H 114 24 95/66 96
05/27/24 14:50 05/27/24 14:50 05/27/24 14:50 05/27/24 14:50 05/27/24 14:50
Last Documented Vital Signs
Temp Pulse Resp BP Pulse Ox
98.3 F 69 16 99/59 95
05/27/24 21:46 05/27/24 22:15 05/27/24 22:15 05/27/24 22:02 05/27/24 22:15
Cabinet Mounter consulted with Physician
Cabinet Mounter consulted with physician?: Yes
Name of Physician Consulted: Everett
<Cain TheeMaggie Floyd, DO - Last Filed: 05/27/24 18:09>
Orders/Labs/Results
Orders:
Orders
05/27/24 Dinner
NPO
Allow oral meds: Yes
Allow clear liquids: Sips of Clears
05/27/24 15:29
Complete Blood Count/With Diff Urgent
Comprehensive Metabolic Panel Urgent
Lipase Urgent
05/27/24 15:51
0.9% Sodium Chloride 500 ml [Nss] 500 ml IV BOLUS
Ondansetron Injectable [Zofran] 4 mg IV NOW STA
05/27/24 15:52
Acetaminophen [Tylenol] 650 mg PO NOW STA
05/27/24 16:01
NT-proBNP Urgent
Troponin I Urgent
05/27/24 16:19
Lactic Acid Urgent
05/27/24 16:39
Chest [CR Chest - 2 Views ] Urgent
Comment:
Reason For Exam: sob/fever
05/27/24 18:00
CT Abd/Pel (IV only)-DH only Urgent
Comment:
Reason For Exam: abd pain n/v/d fever
0.9% Sodium Chloride 1000 ml [Nss] 1,000 ml IV BOLUS
05/27/24 19:07
Bladder Scan- Treatment ONCE
05/27/24 19:08
Electrocardiogram (*1) Stat
Reason for Study: Other
Other Reason for Exam: chest pain
EKG- Treatment ONCE
05/27/24 19:15
NORepinephrine 4 MG/250 ML [Levophed] 4 mg in 250 ml IV PER PROTOCOL
Initial dose in mcg/min, then titrate:: 4
Titrate to keep:: MAP > 65 mmHg
Titrate by mcg/min:: 1-2 mcg/min
Frequency of titrations (minutes):: 5
Maximum dose in ICU in mcg/min:: 30
Maximum dose in IMU in mcg/min:: 8
Maximum dose in IVU in mcg/min:: 4
Begin to taper infusion when:: Remained at goal for 4hrs
Taper by mcg/min:: 1-2 mcg/min
Frequency of taper (minutes) if patient maintains goal:: 30
Taper to off?: Yes
If infusion off & no longer maintaining goal:: Contact Provider
05/27/24 19:25
Add On- LAB Urgent
Tests Added?: VBG
05/27/24 19:26
Cefepime HCl [Maxipime] 1,000 mg IV NOW STA
Vancomycin 1 Gram/200 ml [Vancocin] 1 gram in 200 ml IV NOW
05/27/24 19:38
UA Reflex to Culture [Urinalysis Reflex To Culture] Urgent
Date Specimen was Collected: 05/27/24
Time Specimen was Collected: 17:45
05/27/24 19:41
Sterile Water [Sterile Water For Injection] 10 ml .ROUTE .[facility]
05/27/24 20:26
COVID-19 Antigen Urgent
Source: Nasal Swab
05/27/24 20:39
Admit/Transfer Patient As Directed
Co-Sign Provider:
Level of Care: Inpatient admission
Assign to:: IMU- Intermediate Care
Physician / Group: jessica
Diagnosis: viral gastroenteritis
Reason for Hospitalization: viral gastroenteritis
Expected length of stay greater than two midnights?: Yes
ELOS- Estimated Length of Stay in days: 2
I certify the patient meets the requirements for IP care: Yes
Code Status As Directed
Resuscitation Status: Full Code
05/27/24 20:44
C difficile Antigen & Toxins Urgent
LUTHER Source: Feces/Stool
Specimen Description:
Stool Culture Urgent
LUTHER Source: Feces/Stool
Specimen Description:
05/27/24 20:45
Norovirus by PCR Urgent
LUTHER Source: Feces/Stool
Specimen Description:
05/27/24 21:35
0.9% Sodium Chloride 1000 ml [Nss] 1,000 ml IV 100 mls/hr
Acetaminophen [Tylenol] 650 mg PO Q4HPRN PRN
Albuterol [ProAIR HFA INHALER] 2 puff INH R Q6HPRN PRN
Dextrose 50%-Water [Dextrose 50% Syringe] 12.5 grams IV [id number] PRN
Glucagon [GlucaGen] 1 mg IM PRN PRN
05/27/24 21:35
Activity As Directed
Activity Level: As Tolerated
Bedside Glucose Monitoring As Directed
Frequency: AC&HS
Additional Instructions:: Change to q6h if pt on TPN, tube feeding or not eating
Bladder Scan As Directed
Follow Bladder Retention/Intermittent Cath Algorithm?: Yes
PRN if no void in __ hours: 6
Frequency: Per Retention Algorithm
If Bladder Scan Result >: 400
then:: Straight cath
Straight Cath As Directed
Frequency: Per Retention Algorithm
Additional Instructions: straight cath as needed per acute urinary retention algorithm for 24 hrs
Additional Instructions: for bladder scan greater than 400 mL
Vital Signs As Directed
Frequency: Per unit guidelines
DX Deep Vein Thrombosis Video Routine
05/27/24 22:00
Aspirin Low Dose EC [Aspir Low (Enteric Coated)] 81 mg PO HS
Melatonin 5 mg PO HS
Sertraline HCl [Zoloft] 50 mg PO HS
Vitamin B Complex with C [B COMPLEX w/VITAMIN C] 1 caplet PO HS
05/28/24 06:00
Complete Blood Count/With Diff IN AM
Comprehensive Metabolic Panel IN AM
Glycohemoglobin (HgbA1c) IN AM
05/28/24 07:30
Insulin Aspart Corrective Low [Novolog Flexpen-Low Resistance] See Protocol SC AC
05/28/24 08:00
Ascorbic Acid [Vitamin C] 1,000 mg PO DAILY
Atorvastatin [Lipitor] 10 mg PO DAILY
Cholecalciferol (Vitamin D3) [VITAMIN D3 (cholecalciferol)] 50 mcg PO DAILY
FOLic ACID [Folvite] 1 mg PO DAILY
Gabapentin [Neurontin] 600 mg PO BID
Heparin 5,000 units SC Q12
Abnormal Lab Results
05/27/24 05/27/24 05/27/24
15:29 16:19 19:38
WBC 13.1 H 10^3/uL
(4.8-10.8)
RBC 4.21 L 10^6/uL
(4.70-6.10)
MCV 98.1 H fL
(80.0-94.0)
MCH 32.1 H pg
(27.0-31.0)
MCHC 32.7 L g/dL
(33.0-37.0)
RDW 16.1 H %
(11.5-14.5)
MPV 10.6 H fL
(7.4-10.4)
Abs Immat Gran (auto) 0.1 H 10^3/uL
(0-0.05)
Absolute Neuts (auto) 11.7 H 10^3/uL
(1.4-6.5)
Absolute Lymphs (auto) 0.9 L 10^3/uL
(1.2-3.4)
Neutrophils % 89.5 H %
(42.2-75.2)
Lymphocytes % 7.1 L %
(20.5-51.1)
Carbon Dioxide 21 L mmol/L
(22-30)
BUN 29 H mg/dl
(9-20)
Glucose 203 H mg/dl
(70-99)
Lactic Acid 2.2 H mmol/L
(0.7-2.0)
Total Bilirubin 1.4 H mg/dl
(0.2-1.3)
Total Protein 5.8 L g/dl
(6.3-8.2)
Urine Ketones 1+ A
(Negative)
Urine Bilirubin 1+ A
(Negative)
05/27/24 15:29
05/27/24 15:29
Vital Signs
Initial and Last Documented VS:
Initial Vital Signs
Temp Pulse Resp BP Pulse Ox
100.9 F H 114 24 95/66 96
05/27/24 14:50 05/27/24 14:50 05/27/24 14:50 05/27/24 14:50 05/27/24 14:50
Last Documented Vital Signs
Temp Pulse Resp BP Pulse Ox
98.3 F 69 16 99/59 95
05/27/24 21:46 05/27/24 22:15 05/27/24 22:15 05/27/24 22:02 05/27/24 22:15
<RANJEET George - Last Filed: 05/27/24 22:47>
MDM/Problems Addressed
Differential Diagnosis Includes:
Not limited to viral gastroenteritis, dehydration, UTI, sepsis, diverticulitis
MDM/Problems Addressed:
Patient is a 84-year-old male who presents to the ER complaining of watery diarrhea throughout the night(not recently on antibiotics) and diarrhea today. Patient complains of chills. Patient also complains of shortness of breath for the past week.
Patient presents to the ER febrile and tachycardic with an elevated white count of 13.1 lactic acid 2.2. Patient does not have a history of CHF. He is mildly dry on exam and has an elevated BUN of 29 with a normal creatinine. Negative
urinalysis. Chest x-ray shows tiny pleural effusion on right side. Patient was hypotensive here and given septic fluids. Pt was eval by ED physician CAT scan of abdomen was ordered and negative. Levophed was initially ordered but held off with
infusion here in the ER as blood pressure was improving in the 90s. Patient was treated with empiric antibiotics and admitted to the hospital for further evaluation
<RANJEET George - Last Filed: 05/27/24 22:47>
*Critical Care Note
Total Time (30-74mins, 75-104mins- exclusive of procedures): Not Applicable
ED Attending Note
<RANJEET George - Last Filed: 05/27/24 22:47>
-
Portions of this chart may have been created with voice recognition software.� Occasional wrong word or��sound alike� substitutions may have occurred due to the inherent limitations of voice recognition software.
<Cain Floyd DO - Last Filed: 05/27/24 18:09>
ED Attending Note
Patient seen and examined by attending physician: Yes
I performed the substantive portion of visit, reviewed & personally made and approve the management plan that is documented in note by myself or FANG.: Yes
ED Attending Note:
I agree with Rowan's note
Patient presents because he has been having nausea, vomiting and diarrhea. He was febrile in triage. Patient also been feeling some shortness of breath with exertion. He states no one else in the house is sick.
Patient noted be febrile in triage. Somewhat hypotensive.
General: Awake, Alert, Oriented X3. No acute distress.
Vitals: Mildly tachypneic, not hypoxic
Head: Atraumatic
Eyes: Pupils equal, EOMI
Throat: Airway intact, no exudates
Neck: Trachea midline
Lungs: Clear and equal b/l
Heart: Regular rate, no murmurs
Abd: Soft, mild left lower abdominal tenderness, No pulsatile mass
Neuro: Nonfocal
Skin: Warm, dry, no rash
Extremities: pulses equal b/l, no edema
Patient presents with fever, nausea, vomiting and diarrhea. Initial labs show a mildly elevated white blood cell count. Patient does not have an anion gap. BUN elevated 29 with a normal creatinine of 1.3. Lactic acid is essentially unremarkable.
Patient's blood pressure was borderline on arrival and he did have some episodes of rosalia hypotension. IV fluid boluses administered. Will obtain a CT of the abdomen pelvis. Clearly patient will require hospitalization.
Discharge Plan
Departure
Patient Disposition: Admit
Date of Disposition: 05/27/24
Time of Disposition: 20:17
Admit to: Med/Surg
Presentation/result/management discussed w/ accepting MD/DO: Hospitalist
Patient with high blood pressure during this ER visit?: No
Condition: Fair
Covid-19: Not Applicable
Discharge Problem:
Sepsis, Fever
Interventions
Interventions:
*Risk Screen - Suicide Last Done: 05/27/24 16:42
*General Assessment Last Done: 05/27/24 16:42
*Neglect/Abuse Screening Last Done: 05/27/24 16:42
ED- Fall Risk Assessment Last Done: 05/27/24 16:42
*ED COVID-19 Vaccine History Last Done: 05/27/24 16:42
*Nursing Disposition Last Done: 05/27/24 21:41
KU-[id number]-Vgwerwwlts Assessment Last Done: 05/27/24 15:30
Discharge Date and Time
Discharge Date/Time: 05/27/24 21:41
[2024-05-27] MEDS: NSS 500 IV (15:57)
[2024-05-27] MEDS: ZOFRAN 4 MG IV (15:57)
[2024-05-27] MEDS: TYLENOL 650 MG PO (15:59)
[2024-05-27 16:04] LABS: ALT (SGPT) 21 U/L (0-50); AST (SGOT) 35 U/L (17-59); Albumin 3.8 g/dl (3.5-5.0); Alkaline Phosphatase 70 U/L (38-126); Blood Urea Nitrogen 29 mg/dl (9-20); Calcium 9.6 mg/dl (8.4-10.2); Carbon Dioxide 21 mmol/L (22-30); Chloride 104 mmol/L (98-107); Glucose 203 mg/dl (70-99); Lipase 88 U/L (23-300); Potassium 4.9 mmol/L (3.5-5.1); Sodium 135 mmol/L (135-145); Total Bilirubin 1.4 mg/dl (0.2-1.3); Total Protein 5.8 g/dl (6.3-8.2); eGFR 54.85
[2024-05-27 16:36] LABS: NT-proBNP 1950 pg/ml; Troponin I 0.023 ng/ml
[2024-05-27 16:44] LABS: Lactic Acid 2.2 mmol/L (0.7-2.0)
[2024-05-27] MEDS: NSS 1000 IV ×2 (19:23→22:05)
[2024-05-27] MEDS: MAXIPIME 1000 MG IV (19:42)
[2024-05-27] MEDS: VANCOCIN 200 IV (19:44)
[2024-05-27 19:49] LABS: Urine Albumin Negative (Neg - Trace); Urine Bilirubin 1+ (Negative); Urine Character Clear (Clear); Urine Color Yellow; Urine Glucose Negative (Negative); Urine Ketone 1+ (Negative); Urine Leukocyte Negative (Negative); Urine Nitrite Negative (Negative); Urine Occult Blood Negative (Negative); Urine Urobilinogen Negative (Neg - 1+)
--- NOTE | 2024-05-27 20:41 | HPS.HSE ---
Addendum entered and electronically signed by Juan Jose Jimenez MD 05/27/24 20:44:
Stool culture and Cdif pending.
Original Note:
Family Physician
-
Family Physician: Alex Leon
Chief Complaint
-
vomiting, diarrhea
History of Present Illness
84-year-old male past medical history of diabetes, diabetic neuropathy, postpolio syndrome with residual right-sided weakness, chronic macrocytic anemia, hypertension, hyperlipidemia, prostate cancer status post chemotherapy/radiation, penile
implant, rheumatoid arthritis, anxiety/depression, alcohol use disorder, chronic ambulatory dysfunction, obesity, essential tremor, hyponatremia, presenting for watery diarrhea all last night and projectile vomiting at 4 AM. He vomited multiple
times. He had chills. Has some pain in the left side of his abdomen but denies any urinary frequency or urgency but did not urinate today. He denies eating any outside food or any sick contacts.
He has been having shortness of breath with exertion and some cough for the past 10 days. He denies any chest pain. He denies lower extremity edema.
He denies smoking or alcohol use.
Medical History
Past Medical History
Past Medical History: Reports Other (diabetes, diabetic neuropathy, postpolio syndrome with residual right-sided weakness, chronic macrocytic anemia, hypertension, hyperlipidemia, prostate cancer status post chemotherapy/radiation, penile implant,
rheumatoid arthritis, anxiety/depression, alcohol use disorder, chronic ambulatory dysfun)
Past Surgical History: Reports Other (Appendectomy, Bowel resection, Orthopedic (Hand surgery with finger amputation, Right knee replacement), Tonsilectomy, Urological (TURP) and Other (cataracts, hernia repair))
Social History
Tobacco: Non-smoker
Alcohol: None
Drug: None
Family History
Family History: Not pertinent
Allergies / Home Medications
Allergies reflects when Allergies were last updated in [employer].
Home Medications with original date entered in [employer]
Allergy/Medication List:
Allergies
Allergy/AdvReac Type Severity Reaction Status Date / Time
codeine Allergy Itching Verified 05/27/24 14:54
ibuprofen Allergy Itching Verified 05/27/24 14:54
indomethacin [From Indocin] Allergy Itching Verified 05/27/24 14:54
levofloxacin [From Levaquin] Allergy Itching Verified 05/27/24 14:54
lidocaine Allergy Itching Verified 05/27/24 14:54
morphine Allergy Hallucinations, Verified 05/27/24 14:54
psych
reaction
NSAIDS (Non-Steroidal Allergy Itching Verified 05/27/24 14:54
Anti-Inflamma
Penicillins Allergy SEVERE Verified 05/27/24 14:54
HIVES
THROAT,
Itching,
Difficulty
Breathing
CoQ10 Allergy Itching Uncoded 05/27/24 14:54
Home Medications
glipizide 5 mg tablet 5 mg PO BID@0800,1700 Diabetes 07/23/14
atorvastatin 10 mg tablet 10 mg PO DAILY High cholesterol 08/14/16
acetaminophen 325 mg tablet 650 mg (2 x 325 mg) PO Q4HPRN PRN for mild pain or fever >100.4F ##0 09/07/16
ascorbic acid (vitamin C) 500 mg tablet (Vitamin C) 1,000 mg PO DAILY Supplement 01/29/18
cholecalciferol (vitamin D3) 50 mcg (2,000 unit) tablet 2,000 unit PO DAILY Supplement 01/29/18
metformin 500 mg tablet,extended release 24 hr 1,000 mg PO BID@0800,1700 Diabetes 01/29/18
sertraline 50 mg tablet 50 mg PO HS Depression 01/29/18
B-complex with vitamin C 1 caplet PO HS 11/07/21
aspirin 81 mg tablet,delayed release 81 mg PO HS Blood Clot Prevention/Tx 11/09/23
gabapentin 300 mg capsule 600 mg PO BID Neurological Condition 11/09/23
melatonin 5 mg tablet 5 mg PO HS Sleep 11/09/23
methotrexate sodium 2.5 mg tablet 20 mg PO TU arthritis 11/09/23
cholestyramine (with sugar) 4 gram oral powder 1 ea PO DAILY Loose Stools 11/10/23
desonide 0.05 % topical ointment 1 applic topical DAILY PRN leg rash 11/10/23
folic acid 1 mg tablet 1 mg PO DAILY Supplement 11/10/23
albuterol sulfate 90 mcg/actuation aerosol inhaler (Ventolin HFA) 2 puff inhalation Q6H PRN shortness of breath or wheezing #8.5 grams 11/13/23
azithromycin 250 mg tablet 500 mg (2 x 250 mg) PO DAILY 3 days #6 tabs 11/13/23
cefuroxime axetil 500 mg tablet 500 mg PO BID #7 tabs 11/13/23
Review of Systems
-
History Source: Patient
A 12 point ROS was completed and negative except as noted: Yes
Constitutional: Reports No Symptoms
EENT: Reports No Symptoms
Respiratory: Reports See HPI
Cardiac: Reports No Symptoms
Abdomen/GI: Reports See HPI
: Reports No Symptoms
Musculoskeletal: Reports No Symptoms
Skin: Reports No Symptoms
Neurological: Reports No Symptoms
Endocrine: Reports No Symptoms
Hematologic/Lymphatic: Reports No Symptoms
Psych: Reports No Symptoms
Physical Exam
Vital Signs
Vital Signs
Temp Pulse Resp BP Pulse Ox
100 F 66 18 90/49 93
05/27/24 17:30 05/27/24 20:15 05/27/24 20:15 05/27/24 20:00 05/27/24 20:15
Physical Exam
General: Well Developed, Well Nourished and No Apparent Distress
HEENT: NormoCephalic, Moist mucous membranes and Atraumatic
Respiratory: Clear
Cardiac: S1/S2 and Regular Rhythm; No Murmur or Rub
GI: Soft, Non Distended, Normal Bowel Sounds and Tender; No Organomegaly
Rectal: Deferred by Provider
Musculoskeletal: No Clubbing, No Cyanosis and No Edema
Skin: No Rash
Neuro: Nonfocal/grossly intact
Laboratory Results
-
05/27/24 15:29
05/27/24 15:29
Laboratory Results
Lactic Acid 2.2 mmol/L (0.7-2.0) H 05/27/24 16:19
Total Bilirubin 1.4 mg/dl (0.2-1.3) H 05/27/24 15:29
AST 35 U/L (17-59) 05/27/24 15:29
ALT 21 U/L (0-50) 05/27/24 15:
Alkaline Phosphatase 70 U/L (38-126) 05/27/24 15:29
Troponin I 0.023 ng/ml 05/27/24 16:01
Lipase 88 U/L (23-300) 05/27/24 15:29
Data Reviewed
-
Lab Data: Labs Reviewed by me
Old Records: Reviewed
Impression/Plan
-
IMPRESSION:
PLAN:
# Sepsis (fever, tachycardia, tachypnea, leukocytosis, hypotension) etiology likely acute viral gastroenteritis
-CT abdomen pelvis shows no acute pathology
-Chest x-ray shows tiny right pleural effusion which is progressed
-COVID pending
-Blood culture pending
-IV fluids
-N.p.o.
-Given vancomycin/cefepime in ER, will discontinue further antibiotics for now
# Shortness of breath/cough
-Chest x-ray shows tiny right pleural effusion progressed but no other pathology
-Possibly underlying obesity hypoventilation/asthma
-Continue nebulizers
# Inability to urinate likely due to underlying BPH
-Bladder scan protocol
Prostate cancer status post chemotherapy/radiation
Penile implant
Type 2 diabetes
-Hold metformin, glipizide
-Insulin sliding scale
Diabetic neuropathy
-Continue gabapentin
Essential hypertension
Post polio syndrome with residual right-sided weakness
Chronic macrocytic anemia
Hyperlipidemia
-Continue statin
Rheumatoid arthritis
-Continue methotrexate
Anxiety/depression
-Continue sertraline
Alcohol use disorder
Chronic ambulatory dysfunction
Osteoarthritis
Obesity
Essential tremor
History of hyponatremia
Full code
DVT prophylaxis�heparin
N.p.o.
[2024-05-27 20:48] LABS: COVID-19 Antigen Negative (Negative)
[2024-05-27] MEDS: ZOLOFT 50 MG PO (22:05)
[2024-05-27] MEDS: ASPIR LOW (ENTERIC COATED) 81 MG PO (22:06)
[2024-05-27] MEDS: B COMPLEX w/VITAMIN C 1 CAPLET PO (22:06)
[2024-05-27] MEDS: MELATONIN 5 MG PO (22:06)
[2024-05-28] VITALS (13 sets, daily range): BP systolic 86–121; BP diastolic 46–64; PULSE 60; O2SAT 96; BMI 34.0
[2024-05-28 00:26] LABS: Glucose - Point of Care 138 mg/dl (70-99)
--- NOTE | 2024-05-28 00:56 | PTCARENOTE ---
Admitted pt overnight. aaox3, pleasant. Denies pain. NSR on monitor. Bp's soft but stable. IVF running. Received pt on RA, placed on 2LHS d/t desating to 87%. No skin issues. NO N/V noted. No BM yet. Await to send cultures. Continues to be on
enhanced precautions in the meantime. PT sleeping at this time. Will monitor.
[2024-05-28 04:32] LABS: % Basophils 0.4 % (0-2); % Eosinophils 0.9 % (0-6); % Immature Granulocytes 0.4 % (0-0.5); % Lymphocytes 8.6 % (20.5-51.1); % Neutrophils 86.7 % (42.2-75.2); ALT (SGPT) 17 U/L (0-50); AST (SGOT) 23 U/L (17-59); Absolute Eosinophils 0.1 10^3/uL (0-0.7); Absolute Lymphocytes 0.7 10^3/uL (1.2-3.4); Absolute Monocytes 0.2 10^3/uL (0.1-0.6); Absolute Neutrophils 6.9 10^3/uL (1.4-6.5); Albumin 2.8 g/dl (3.5-5.0); Alkaline Phosphatase 60 U/L (38-126); Blood Urea Nitrogen 29 mg/dl (9-20); Calcium 8.7 mg/dl (8.4-10.2); Carbon Dioxide 20 mmol/L (22-30); Chloride 108 mmol/L (98-107); Estimated Creatinine Clearance 62 ml/min; Glucose 132 mg/dl (70-99); Hemoglobin 10.8 g/dL (13.0-18.0); Mean Corp Hgb Conc. 32.7 g/dL (33.0-37.0); Mean Corpuscular Hgb 31.7 pg (27.0-31.0); Mean Corpuscular Volume 96.8 fL (80.0-94.0); Mean Platelet Volume 10.3 fL (7.4-10.4); Nucleated Red Blood Cells % 0 % (-); Platelet Count 128 10^3/uL (130-400); Potassium 4.2 mmol/L (3.5-5.1); Red Blood Cell Count 3.41 10^6/uL (4.70-6.10); Red Cell Dist. Width 16.2 % (11.5-14.5); Sodium 134 mmol/L (135-145); Total Bilirubin 0.9 mg/dl (0.2-1.3); Total Protein 4.8 g/dl (6.3-8.2); White Blood Cell Count 7.9 10^3/uL (4.8-10.8); eGFR > 60.00
[2024-05-28 06:16] LABS: Glucose - Point of Care 144 mg/dl (70-99)
[2024-05-28 07:06] LABS: Lactic Acid 0.7 mmol/L (0.7-2.0)
[2024-05-28] MEDS: NSS 1000 IV (09:11)
[2024-05-28] MEDS: NEURONTIN 600 MG PO ×2 (09:12→20:50)
[2024-05-28] MEDS: FOLVITE 1 MG PO (09:13)
[2024-05-28] MEDS: VITAMIN D3 (cholecalciferol) 50 MCG PO (09:13)
[2024-05-28] MEDS: HEPARIN 5000 UNITS SC ×2 (09:13→20:50)
[2024-05-28] MEDS: LIPITOR 10 MG PO (09:13)
[2024-05-28] MEDS: VITAMIN C 1000 MG PO (09:13)
[2024-05-28 10:50] LABS: Glycohemoglobin (HgbA1c) 5.7 % (4.0-5.6)
[2024-05-28 12:00] LABS: Glucose - Point of Care 132 mg/dl (70-99)
[2024-05-28] MEDS: NOVOLOG FLEXPEN-LOW RESISTANCE SC ×2 (12:01→17:38)
--- NOTE | 2024-05-28 13:56 | CM ---
Patient with Dx Sepsis likely acute viral gastroenteritis. O2 2L. Full liquids. PT & OT Evals pending. Plan transfer IMU to 3W.
Met with patient who kept falling asleep- unable to do initial assessment with patient at this time.
Spoke with patient's daughter Emma;
the patient resides with his daughter Emma, his son in law and 11 yr old grand-daughter in a one story house with 4 GENOVEVA.
The family moved to new address 1 week ago: [address], [place] [address].
They are planning to install a ramp or chair lift on outside stair entrance.
The patient has been independent in ADLs and ambulation using his quad cane until a few days ago when he became ill, and required assistance from Emma. He had recently been going to outpatient PT.
The patient is able to drive.
DME - quad cane, RW
Remote VN - agency unknown
No prior SNF
PCP - Alex Leon
Pharmacy - [facility] Alice Rios, [place]
Daughter Emma does not drive due to seizure disorder.
Plan watch for home O2 needs.
Plan follow up after seen by PT/OT.
--- NOTE | 2024-05-28 15:37 | W.PN.HOSP.TC ---
Today's Communication/Plan
-
Echocardiogram
Monitor GI symptoms
Trial of liquid diet
transfer to [facility]
Assessment / Plan
Assessment / Plan
1. Sepsis
Viral gastroenteritis
-CT abdomen pelvis shows no acute pathology
-Chest x-ray shows tiny right pleural effusion which is progressed
-COVID neg
-C. difficile antigen positive, toxin negative. Norovirus negative.
-Start patient on liquid diet.
-With known C. difficile antigen positivity at this point avoid unnecessary antibiotics.
2. Acute hypoxic respite insufficiency
-Chest x-ray shows tiny right pleural effusion progressed but no other pathology
-Stop further IV fluid if patient developing any pulmonary congestion
-proBNP borderline elevated to 2K, repeat echocardiogram ordered. Last one in 2018 was normal
3. Presumed BPH
-Complaining some difficulty voiding
-Bladder scan protocol
4. NIDDM
-Hold metformin, glipizide
-Insulin sliding scale
Prostate cancer status post chemotherapy/radiation
Penile implant
Diabetic neuropathy
Essential hypertension
Post polio syndrome with residual right-sided weakness
Chronic macrocytic anemia
Hyperlipidemia
Rheumatoid arthritis -Continue methotrexate
Anxiety/depression
Alcohol use disorder
Chronic ambulatory dysfunction
Osteoarthritis
Obesity
Essential tremor
History of hyponatremia
Full code
DVT prophylaxis�heparin
Care plan discussed with patient daughter over the phone
Anticipated Discharge: 24 - 48 hours
Subjective/Interval History
-
Date of Service: May 28, 2024
Nausea/vomiting better
diarrhea improved as well,
afebrile in night
Objective Data
-
Labs:
Laboratory Results
05/28/24
03:42
WBC 7.9
Hgb 10.8 L
Hct 33.0 L
Plt Count 128 L
Sodium 134 L
Potassium 4.2
Chloride 108 H
Carbon Dioxide 20 L
BUN 29 H
Creatinine 1.1
Glucose 132 H
Calcium 8.7
Total Bilirubin 0.9
AST 23
ALT 17
Alkaline Phosphatase 60
Vital Signs:
Vital Signs
Temp Pulse Resp BP Pulse Ox
97.7 F 62 16 93/54 97
05/28/24 11:28 05/28/24 14:28 05/28/24 14:28 05/28/24 14:28 05/28/24 14:00
Review of Systems
-
Respiratory: Reports No Symptoms
Cardiac: Reports No Symptoms
Abdomen/GI: Reports No Symptoms
Physical Exam
-
General: No Apparent Distress and Comfortable
HEENT: Oxygen
Respiratory: Rhonchi and Crackles
Cardiac: Regular Rhythm and S1/S2; Negative Murmur or Rub
GI: Soft, Nontender, Nondistended and Normal Bowel Sounds
Musculoskeletal: No Edema
Neuro: Awake, Alert, Oriented, No Motor Deficits and Nonfocal/Grossly Intact
Psych: Calm
--- NOTE | 2024-05-28 17:11 | CARDSERVLU ---
Echocardiogram with [facility] completed after protocol screening completed. Allergies verified.
Patent IV site: _R FA____
IV site flushed with 0.9% NaCl pre and post administration.
Diluted bolus method utilized to enhance visualization of ventricular riggs.
Total volume given: _2___ mL
Patient tolerated all procedures well without complications.
[2024-05-28 17:25] LABS: Glucose - Point of Care 107 mg/dl (70-99)
[2024-05-28] MEDS: QUESTRAN 4 GRAM PO (17:38)
[2024-05-28] MEDS: ProAmatine 10 MG PO (17:38)
[2024-05-28] MEDS: ZOLOFT 50 MG PO (21:39)
[2024-05-28] MEDS: B COMPLEX w/VITAMIN C 1 CAPLET PO (21:39)
[2024-05-28] MEDS: ASPIR LOW (ENTERIC COATED) 81 MG PO (21:39)
[2024-05-28] MEDS: MELATONIN 5 MG PO (21:39)
[2024-05-28 22:02] LABS: Glucose - Point of Care 140 mg/dl (70-99)
[2024-05-29 07:00] VITALS: BP 101/51
[2024-05-29 07:10] LABS: Glucose - Point of Care 130 mg/dl (70-99)
[2024-05-29] MEDS: NOVOLOG FLEXPEN-LOW RESISTANCE SC ×2 (07:51→16:42)
[2024-05-29] MEDS: HEPARIN 5000 UNITS SC ×2 (07:52→19:45)
[2024-05-29] MEDS: LIPITOR 10 MG PO (07:52)
[2024-05-29] MEDS: FOLVITE 1 MG PO (07:52)
[2024-05-29] MEDS: VITAMIN D3 (cholecalciferol) 50 MCG PO (07:52)
[2024-05-29] MEDS: VITAMIN C 1000 MG PO (07:53)
[2024-05-29] MEDS: NEURONTIN 600 MG PO ×2 (07:53→19:45)
[2024-05-29] MEDS: ProAmatine PO ×3 (07:53→17:12)
[2024-05-29] MEDS: QUESTRAN 4 GRAM PO (07:54)
--- NOTE | 2024-05-29 10:38 | PN.CDI ---
CDI
- -
CDI:
Physician Documentation Request
Admit Date: 05/27/24 21:09
Dear Doctor Murali
Patient admitted with sepsis and vial gastroenteritis.
05/27 lactic acid result 2.2
Please clarify which of the following most accurately describes the status of the patient's infection:
Sepsis Only
Severe Sepsis
Other
Use of terms such as suspected, likely, concern for, or probable (associated with a specific diagnosis that is being evaluated, monitored, or treated as if it exists) are acceptable and can be coded in the inpatient setting, when documented at the
time of discharge.
Thank you,
Zahraa Sparks RN, BSN
CDI Specialist
tiger text
Please use your independent medical judgment in providing your response.
[2024-05-29 11:44] LABS: Glucose - Point of Care 161 mg/dl (70-99)
[2024-05-29] MEDS: NOVOLOG FLEXPEN-LOW RESISTANCE 1 UNITS SC (12:33)
[2024-05-29 14:28] LABS: Hematocrit 33.9 % (39.0-52.0); Mean Corp Hgb Conc. 32.4 g/dL (33.0-37.0); Mean Corpuscular Volume 98.5 fL (80.0-94.0); Mean Platelet Volume 10.7 fL (7.4-10.4); Platelet Count 131 10^3/uL (130-400); Red Blood Cell Count 3.44 10^6/uL (4.70-6.10); White Blood Cell Count 6.6 10^3/uL (4.8-10.8)
[2024-05-29 15:00] VITALS: BP 94/59
[2024-05-29 16:39] LABS: Blood Urea Nitrogen 20 mg/dl (9-20); Calcium 9.5 mg/dl (8.4-10.2); Carbon Dioxide 21 mmol/L (22-30); Chloride 110 mmol/L (98-107); Estimated Creatinine Clearance 68 ml/min; Glucose 125 mg/dl (70-99); Potassium 4.7 mmol/L (3.5-5.1); Sodium 137 mmol/L (135-145); eGFR > 60.00
[2024-05-29 16:43] LABS: Glucose - Point of Care 93 mg/dl (70-99)
--- NOTE | 2024-05-29 17:02 | W.PN.HOSP.TC ---
Today's Communication/Plan
-
d/c home tomorrow if no recurrent diarrhea
Assessment / Plan
Assessment / Plan
1. Sepsis - Improved
Viral gastroenteritis - Improved
-CT abdomen pelvis shows no acute pathology
-Chest x-ray shows tiny right pleural effusion which is progressed
-COVID neg
-C. difficile antigen positive, toxin negative. Norovirus negative.
-With known C. difficile antigen positivity at this point avoid unnecessary antibiotics.
2. Acute hypoxic respite insufficiency - Resolved
-Chest x-ray shows tiny right pleural effusion progressed but no other pathology
-proBNP borderline elevated to 2K
3. Presumed BPH
-Complaining some difficulty voiding
-Bladder scan protocol
4. NIDDM
-Hold metformin, glipizide
-Insulin sliding scale
Prostate cancer status post chemotherapy/radiation
Penile implant
Diabetic neuropathy
Essential hypertension
Post polio syndrome with residual right-sided weakness
Chronic macrocytic anemia
Hyperlipidemia
Rheumatoid arthritis -Continue methotrexate
Anxiety/depression
Alcohol use disorder
Chronic ambulatory dysfunction
Osteoarthritis
Obesity
Essential tremor
History of hyponatremia
Full code
DVT prophylaxis�heparin
Care plan discussed with patient daughter over the phone
Anticipated Discharge: Within 24 hours
Subjective/Interval History
-
Date of Service: May 29, 2024
diarrhea resolved
afebrile at this point
no n/v
Objective Data
-
Labs:
Laboratory Results
05/29/24
14:08
WBC 6.6
Hgb 11.0 L
Hct 33.9 L
Plt Count 131
Sodium 137
Potassium 4.7
Chloride 110 H
Carbon Dioxide 21 L
BUN 20
Creatinine 1.0
Glucose 125 H
Calcium 9.5
Vital Signs:
Vital Signs
Temp Pulse Resp BP Pulse Ox
98 F 57 17 94/59 96
05/29/24 15:00 05/29/24 15:00 05/29/24 15:00 05/29/24 15:00 05/29/24 15:00
I&O
05/28/24 05/29/24 05/30/24
06:59 06:59 06:59
Intake Total 240 / 240
Output Total 500 / 500
Balance -260 / -260
Review of Systems
-
Respiratory: Reports No Symptoms
Cardiac: Reports No Symptoms
Abdomen/GI: Reports No Symptoms
Physical Exam
-
General: No Apparent Distress and Comfortable
HEENT: Oxygen
Respiratory: Clear to Auscultation; Negative Crackles
Cardiac: Regular Rhythm and S1/S2; Negative Murmur or Rub
GI: Soft, Nontender, Nondistended and Normal Bowel Sounds
Musculoskeletal: No Edema
Neuro: Awake, Alert, Oriented, No Motor Deficits and Nonfocal/Grossly Intact
Psych: Calm
[2024-05-29] MEDS: TYLENOL 650 MG PO (18:08)
[2024-05-29 21:37] LABS: Glucose - Point of Care 113 mg/dl (70-99)
[2024-05-29] MEDS: B COMPLEX w/VITAMIN C 1 CAPLET PO (21:41)
[2024-05-29] MEDS: ZOLOFT 50 MG PO (21:41)
[2024-05-29] MEDS: ASPIR LOW (ENTERIC COATED) 81 MG PO (21:41)
[2024-05-29] MEDS: MELATONIN 5 MG PO (21:42)
[2024-05-29 23:00] VITALS: BP 107/59
[2024-05-30] MEDS: QUESTRAN 4 GRAM PO (07:34)
[2024-05-30] MEDS: NEURONTIN 600 MG PO (07:43)
[2024-05-30] MEDS: LIPITOR 10 MG PO (07:44)
[2024-05-30] MEDS: VITAMIN D3 (cholecalciferol) 50 MCG PO (07:44)
[2024-05-30] MEDS: VITAMIN C 1000 MG PO (07:44)
[2024-05-30] MEDS: HEPARIN 5000 UNITS SC (07:44)
[2024-05-30] MEDS: FOLVITE 1 MG PO (07:44)
[2024-05-30 07:45] VITALS: BP 117/61
[2024-05-30 08:26] LABS: Glucose - Point of Care 121 mg/dl (70-99)
[2024-05-30] MEDS: NOVOLOG FLEXPEN-LOW RESISTANCE SC (08:57)
[2024-05-30 09:28] LABS: Hematocrit 32.9 % (39.0-52.0); Hemoglobin 10.9 g/dL (13.0-18.0); Mean Corp Hgb Conc. 33.1 g/dL (33.0-37.0); Mean Corpuscular Hgb 32.2 pg (27.0-31.0); Mean Corpuscular Volume 97.1 fL (80.0-94.0); Mean Platelet Volume 10.4 fL (7.4-10.4); Platelet Count 115 10^3/uL (130-400); Red Blood Cell Count 3.39 10^6/uL (4.70-6.10); Red Cell Dist. Width 15.7 % (11.5-14.5); White Blood Cell Count 4.4 10^3/uL (4.8-10.8)
[2024-05-30] MEDS: ProAmatine 10 MG PO (09:34)
[2024-05-30 09:49] LABS: Blood Urea Nitrogen 16 mg/dl (9-20); Calcium 9.3 mg/dl (8.4-10.2); Carbon Dioxide 24 mmol/L (22-30); Chloride 108 mmol/L (98-107); Estimated Creatinine Clearance 62 ml/min; Glucose 119 mg/dl (70-99); Potassium 4.5 mmol/L (3.5-5.1); Sodium 137 mmol/L (135-145); eGFR > 60.00
--- NOTE | 2024-05-30 14:12 | W.PN.HOSP.TC ---
Today's Communication/Plan
-
d/c home
Assessment / Plan
Assessment / Plan
1. Sepsis - Improved
Viral gastroenteritis - Improved
-CT abdomen pelvis shows no acute pathology
-Chest x-ray shows tiny right pleural effusion which is progressed
-COVID neg
-C. difficile antigen positive, toxin negative. Norovirus negative.
-With known C. difficile antigen positivity at this point avoid unnecessary antibiotics.
2. Acute hypoxic respite insufficiency - Resolved
-Chest x-ray shows tiny right pleural effusion progressed but no other pathology
-proBNP borderline elevated to 2K
3. Presumed BPH
-Complaining some difficulty voiding
-Bladder scan protocol
4. NIDDM
-Hold metformin, glipizide
-Insulin sliding scale
Prostate cancer status post chemotherapy/radiation
Penile implant
Diabetic neuropathy
Essential hypertension
Post polio syndrome with residual right-sided weakness
Chronic macrocytic anemia
Hyperlipidemia
Rheumatoid arthritis -Continue methotrexate
Anxiety/depression
Alcohol use disorder
Chronic ambulatory dysfunction
Osteoarthritis
Obesity
Essential tremor
History of hyponatremia
Full code
DVT prophylaxis�heparin
05/29 Care plan discussed with patient daughter over the phone
More than 30 minutes spent in discharge including
Final examination of the patient
Summarizing hospital stay
Instructions for continuing care to all relevant caregivers
Preparation of discharge records, prescriptions, and referral forms
Total time spent (in minutes): 38 mins
Anticipated Discharge: Today
Subjective/Interval History
-
Date of Service: May 30, 2024
No reported issues overnight
Objective Data
-
Labs:
Laboratory Results
05/30/24
08:46
WBC 4.4 L
Hgb 10.9 L
Hct 32.9 L
Plt Count 115 L
Sodium 137
Potassium 4.5
Chloride 108 H
Carbon Dioxide 24
BUN 16
Creatinine 1.1
Glucose 119 H
Calcium 9.3
Vital Signs:
Vital Signs
Temp Pulse Resp BP Pulse Ox
98.3 F 60 14 117/61 94
05/30/24 07:45 05/30/24 07:45 05/30/24 07:45 05/30/24 09:34 05/30/24 07:45
I&O
05/29/24 05/30/24 05/31/24
06:59 06:59 06:59
Intake Total 240 / 240 2640 / 2640
Output Total 500 / 500
Balance -260 / -260 2640 / 2640
Review of Systems
-
Respiratory: Reports No Symptoms
Cardiac: Reports No Symptoms
Abdomen/GI: Reports No Symptoms
Physical Exam
-
General: Negative Appears in Distress
HEENT: Negative Oxygen
GI: Soft, Nontender and Nondistended
Neuro: Awake, Alert, Oriented and No Motor Deficits
--- NOTE | 2024-05-31 14:51 | W.DCSUMMARY ---
Discharge Summary
Discharge Data
Date of Admission: 05/27/24
Date of Discharge: 05/31/24
-
Pending Results: No
Hospital Course
Discharging Physician : Dr Tr Carrion
Disposition : Home with home care
Primary care physician : Dr Alex Leon
Principal Discharge diagnosis :
Acute diarrhea from Campylobacter jejuni
Sepsis
Acute hypoxic respiratory sufficiency
Chronic Discharge diagnosis :
Benign prostatic hyperplasia
Dxr-cfzxgnq-krvmjmsnm diabetes mellitus
Prostate cancer s/p chemotherapy/radiation
Diabetic neuropathy
Essential hypertension
History of polio with residual right-sided weakness
Chronic microcytic anemia
History of rheumatoid arthritis on methotrexate
Anxiety/depression
History of alcohol use
Essential tremors
Hospital Course :
Patient is 84-year-old male with above-mentioned past medical history came to ER with new onset of abdominal pain nausea and vomiting. Symptoms were rapid onset and nature. Patient CT abdomen pelvis was done in ER which did not show any acute
pathology. COVID was checked and was negative. There was concern of patient likely having a new C. difficile colitis as well and C. difficile test/stool cultures were collected. Patient was felt to be somewhat septic from this and was monitored
in the hospital. C. difficile test came positive for antigen only and was not toxin producing. Patient denies of having previous history of C. difficile colitis. Patient and family was educated on avoiding unnecessary antibiotic exposure moving
forward.
Patient stool culture was reported to be positive for Campylobacter, patient was provided prescription for 3 days of azithromycin.
Patient also had minimal hypoxia and chest x-ray was showing tiny right pleural effusion. No previous history of heart failure proBNP elevated to 2K. IVF was stopped and patient hypoxia improved without any need of diuretic therapy. Will require
outpatient echocardiogram/cardiology workup if any true signs of heart failure develops.
Patient was discharged home post medical stabilization.
Important imaging findings :
None
Procedure findings :
None
Discharge Plan
-
Patient Disposition: Home (Routine Discharge)
Discharge Diagnosis/Procedures: Viral gastroenteritis
Condition: Fair
Additional Diets: Low lactose diet for few days
Activity: As tolerated
Driving Restrictions: As prior to admission
Bathing Restrictions: OK to Shower
Referrals:
Alex Leon MD [Family Provider] - in one week
Prescriptions:
New
azithromycin 500 mg tablet
500 mg PO DAILY 3 Days Qty: 3 0RF
Continued
glipizide 5 MG tablet
5 mg PO DAILY
atorvastatin 10 MG tablet
10 mg PO HS
acetaminophen 325 MG tablet
650 mg PO Q4HPRN PRN (Reason: for mild pain or fever >100.4F) Qty: 0 0RF
ascorbic acid (vitamin C) [Vitamin C] 500 MG tablet
1,000 mg PO BID
metformin 500 MG tablet extended release 24 hr
1,000 mg PO BID@0800,1700
sertraline 50 MG tablet
50 mg PO HS
cholecalciferol (vitamin D3) 2,000 UNITS tablet
2,000 unit PO DAILY
B-complex with vitamin C 1 CAPLET tablet
1 caplet PO HS 0RF
aspirin 81 mg Tablet,Delayed Release (Dr/Ec)
81 mg PO HS
methotrexate sodium 2.5 mg Tablet
20 mg PO TU
Rx Instructions:
take 10mg in AM, and 10mg in evening---tuesdays only
gabapentin 300 mg Capsule
600 mg PO BID
melatonin 5 mg Tablet
5 mg PO HSPRN PRN (Reason: sleep)
cholestyramine (with sugar) 4 gram powder
1 ea PO DAILY
folic acid 1 mg tablet
1 mg PO DAILY
albuterol sulfate [Ventolin HFA] 90 mcg/actuation HFA aerosol inhaler
2 puff inhalation Q6H PRN (Reason: shortness of breath or wheezing) Qty: 8.5 0RF
miconazole nitrate 2 % Cream
1 applic TOPICAL DAILYPRN PRN (Reason: groin itching)
alprazolam 0.25 mg Tablet
0.25 mg PO DAILYPRN PRN (Reason: anxiety)
lisinopril 10 mg Tablet
10 mg PO DAILY
halobetasol propionate 0.05 % Cream
1 applic TOPICAL DAILYPRN PRN (Reason: leg rash)
fluticasone propionate 50 mcg/actuation [place],Suspension
2 spray INTRANASAL DAILY
fluticasone propionate 50 mcg/actuation [place],Suspension
2 spray INTRANASAL HSPRN PRN (Reason: allergies)
tadalafil 20 mg Tablet
20 mg PO DAILY PRN (Reason: erectile dysfunction)
Discharge Orders:
Discharge Patient (As Directed); Ordered 05/30/24
Ordered By: Tr Carrion
Discharge Date and Time
Discharge Date/Time: 05/30/24 11:27
Print Language: MAURITANIAN
== END 2024-05-30 11:27 | disposition home or self-care (01) | DRG 872 ==
LOC: 3 WEST ACU 21:09
PROVIDERS: Nurse Practitioner; ADMITTING PHYSICIAN Hospitalist; ATTENDING PHYSICIAN Hospitalist; EMERGENCY PHYSICIAN Emergency Medicine; FAMILY PHYSICIAN Internal Medicine
DX: A41.9 Sepsis, unspecified organism (principal); G81.91 Hemiplegia, unspecified affecting right dominant side; A08.4 Viral intestinal infection, unspecified; G14 Postpolio syndrome; Z11.52 Encounter for screening for COVID-19
CPT/HCPCS: 71046; 74177; 80048; 80053; 81003; 82962; 83036; 83605; 83690; 83880; 84484; 85025; 85027; 87045; 87046; 87077; 87324; 87427; 87449; 87798; 87811; 93005; 93306; 96365; 96375; 97162; 97167; 99285; Q9950; Q9967

== ENCOUNTER → 2024-10-27 14:41 | Outpatient (REF) | payer MEDICARE, OTHER, SELFPAY ==
[2024-10-27 16:09] LABS: PT 14.5 Sec (11.4-14.6)
== END ==
LOC: REG 14:41
PROVIDERS: ATTENDING PHYSICIAN Hospitalist; REFERRING PHYSICIAN Internal Medicine Cardiovascular Disease
DX: I48.91 Unspecified atrial fibrillation (principal); R06.09 Other forms of dyspnea
CPT/HCPCS: 36415; 71046; 85610

== ENCOUNTER → 2024-10-29 09:16 | Outpatient (REF) | payer MEDICARE, OTHER, SELFPAY ==
[2024-10-29 09:49] VITALS: BP_SYST 85
[2024-10-29 10:10] LABS: INR 1.19; PT 15.6 Sec (11.4-14.6)
[2024-10-29 10:20] VITALS: BP 116/80; BP_SYST 79
[2024-10-29 11:38] LABS: Body Fluid WBC 386 /CUMM
[2024-10-29 11:48] LABS: Body Fluid LDH 137 U/L; Body Fluid Protein 2.9 g/dl
[2024-10-29 11:59] LABS: Body Fluid Second Tech FB
[2024-10-29 12:06] LABS: Body Fluid Triglycerides < 30 mg/dl
== END ==
LOC: RADI 09:16
PROVIDERS: ATTENDING PHYSICIAN Hospitalist
DX: J90 Pleural effusion, not elsewhere classified (principal)
CPT/HCPCS: 88305; 32555; 36415; 71045; 83615; 84157; 84478; 85610; 87015; 87070; 87205; 88112; 89051

== ENCOUNTER → 2024-11-04 09:49 | Outpatient (REF) | payer MEDICARE, OTHER, SELFPAY | LOC: RAD 09:49 | PROVIDERS: ATTENDING PHYSICIAN Hospitalist | DX: J90 Pleural effusion, not elsewhere classified (principal) | CPT/HCPCS: 71046 ==